=== PATIENT | female | born 1955 | race African-American/Black ===

== ENCOUNTER 2018-05-11 11:57 | Day surgery (SDC) | payer OTHER ==
[~2018-05-11 11:57] MED LIST: NACL 0.9% IR ONE
[2018-05-11] MEDS ORDERED: DECADRON ONE (13:30)
[2018-05-11 13:59] LABS: Basophils % (Auto) 0.4 % (0.0-1.8); Eosinophils # (Auto) 0.1 K/mm3 (0.0-0.4); Eosinophils % (Auto) 0.9 % (0.0-4.3); Hematocrit 42.9 % (30.3-42.9); Hemoglobin 15.4 gm/dl (10.1-14.3); Lymphocytes % (Auto) 27.1 % (13.4-35.0); Mean Corpuscular HGB Conc 36 % (30-34); Mean Corpuscular Hemoglobin 32 pg (28-32); Mean Corpuscular Volume 88 fl (79-97); Monocytes # (Auto) 0.7 K/mm3 (0.0-0.8); Monocytes % (Auto) 6.1 % (0.0-7.3); Platelet Count 263 K/mm3 (140-440); Red Blood Count 4.89 M/mm3 (3.65-5.03); Red Cell Distribution Width 13.7 % (13.2-15.2)
[2018-05-11] MEDS ORDERED: ZOFRAN IV PRN (14:00)
[2018-05-11] MEDS ORDERED: TORADOL IV PRN (14:00)
[2018-05-11] MEDS ORDERED: VERSED IV PRN (14:00)
[2018-05-11] MEDS ORDERED: LACTATED RINGERS 1,000 ML IV SCH (14:00)
--- NOTE | 2018-05-11 14:07 | Anesthesia Consultation ---
Anesthesia Consult and Med Hx Date of service: 05/11/18 - Airway Anesthetic Teeth Evaluation: Poor, Partials ROM Head & Neck: Adequate Mental/Hyoid Distance: Adequate Mallampati Class: Class II Intubation Access Assessment: Probably Good - Pulmonary Exam CTA: Yes - Cardiac Exam Cardiac Exam: RRR - Pre-Operative Health Status ASA Pre-Surgery Classification: ASA2 Proposed Anesthetic Plan: General - Pulmonary Hx Smoking: No Hx Asthma: No - Cardiovascular System Hx Hypertension: Yes Hx Angina: No - Gastrointestinal Hx Gastroesophageal Reflux Disease: No - Endocrine Hx Renal Disease: No Hx Non-Insulin Dependent Diabetes: No - Other Systems Hx Alcohol Use: No Hx Substance Use: No - Additional Comments Anesthesia Medical History Comments: glaucoma, neuropathy
--- NOTE | 2018-05-11 14:07 | Anesthesia Day of Surgery ---
Anesthesia Day of Surgery - Day of Surgery Patient Examined: Yes Patient H&P Reviewed: Yes Patient is NPO: Yes
[2018-05-11 14:11] LABS: BUN/Creatinine Ratio 30; Blood Urea Nitrogen 18 mg/dL (7-17); Calcium 9.4 mg/dL (8.4-10.2); Hemolysis Index 8
[2018-05-11] MEDS ORDERED: DILAUDID ONE (15:23)
[2018-05-11] MEDS ORDERED: DIPRIVAN 10 MG/ML IV ONE (15:24)
[2018-05-11] MEDS ORDERED: ePHEDrine 50 MG/5 ML-0.9% NACL IV ONE (15:38)
--- NOTE | 2018-05-11 16:33 | Operative Report ---
Operative Report Operative Report: Preoperative diagnosis: 1. Postmenopausal bleeding. 2. Endometrial polyps. Postoperative diagnosis: 1. Postmenopausal bleeding. 2. Endometrial polyps. 3. Submucosal myoma. Procedure: 1. Hysteroscopy. 2. Dilation and curettage. 3. Endometrial polypectomy. 4. Submucosal myomectomy. Anesthesia: General Surgeon: Dr. Landry Gas Manager: none EBL: minimal IVF: Ringer's lactate 1 L Complications: none Procedure details: Risks, benefits, and alternatives of the procedure were discussed in detail with the patient which included but not limited to the risk of infection, hemorrhage requiring blood transfusion, and uterine perforation. The patient expressed understanding, her questions were answered, and she gave informed consent. The patient was taken to the operating room with an IV fluid infusion Ringer's lactate. In the operating room, she was placed in the dorsal supine position and given general anesthesia. The perineum, vagina, and cervix were washed and she was prepared and draped in usual sterile fashion. Examination under anesthesia revealed a normal external genitalia, vagina, and cervix. The polyps that was found to be protruding at the cervix on prior examination was no longer seen at the cervix. The cervix appeared was about 1 cm open with mild bleeding and no gross lesions,. The uterus was 9 week size, anteverted, and mobile. The adnexa were nonpalpable. A weighted speculum was placed on the posterior vaginal wall. The anterior lip of the cervix was grasped with a single-tooth tenaculum. Endocervical curettage was done. The cervical os was further dilated, the hysteroscope was introduced into the uterine cavity and it revealed a mildly atrophic endometrial lining with a small fibroid at the fundal region and a large polyps on the posterior wall. Polyp forceps was used to remove the small fibroid and the endometrial polyps. The hysteroscope was removed and the gentle curettage was performed until a gritty texture was noticed. The specimen which consisted of ECC EMC, submucosal myoma, and endometrial polyps was sent to pathology. The instruments were then removed from the uterus, cervix, and vagina. The counts of laps, needles, sponges, and instruments were correct 2. The patient tolerated the procedure well. She was awakened from the anesthesia and taken to the recovery room in a stable condition.
[2018-05-11] MEDS: DILAUDID IV PRN ×2 (16:40→16:50)
[2018-05-11 18:10] VITALS: BP 124/70
== END 2018-05-11 11:58 | disposition home or self-care (01) ==
LOC: OR 11:57
PROVIDERS: ATTEND Obstetrics & Gynecology
DX: N84.0 Polyp of corpus uteri (principal); D25.0 Submucous leiomyoma of uterus; I10 Essential (primary) hypertension; G62.9 Polyneuropathy, unspecified
CPT/HCPCS: 36415; 58558; 80048; 85025; 88305; A4217; J1100; J1170; J1885; J2704; J7120